=== PATIENT | female | born 1980 | race African-American/Black ===

== ENCOUNTER 2019-12-18 23:29 | Emergency (ER) | payer OTHER, MEDICARE ==
[~2019-12-18] VITALS: Ht 170.2 cm; Wt 72.0 kg
[2019-12-19] MEDS ORDERED: ACETAMINOPHEN 325MG TABLET PO ONE (01:15)
[2019-12-19] MEDS ORDERED: BACITRACIN ZINC OINT UDPKT TOP ONE (01:15)
[2019-12-19] MEDS ORDERED: LIDOCAINE HCL/PF 1% 10 MG/ML 5ML VIAL IJ ONE (01:15)
[2019-12-19 02:01] VITALS: BP 107/65
== END 2019-12-19 02:02 | disposition home or self-care (01) ==
LOC: ER 23:29
DX: S61.012A Laceration without foreign body of left thumb without damage to nail, initial encounter (principal); W26.8XXA Contact with other sharp object(s), not elsewhere classified, initial encounter; Y93.89 Activity, other specified; Y92.89 Other specified places as the place of occurrence of the external cause; Y99.8 Other external cause status; Z98.890 Other specified postprocedural states; Z99.2 Dependence on renal dialysis; Z88.1 Allergy status to other antibiotic agents; Z88.8 Allergy status to other drugs, medicaments and biological substances
CPT/HCPCS: 12001; 99283; J3490

== ENCOUNTER 2019-12-23 20:35 | Emergency (ER) | payer MEDICARE, OTHER ==
[~2019-12-23] VITALS: Ht 170.2 cm; Wt 70.0 kg
[2019-12-23] MEDS ORDERED: TETANUS, DIPHTHERIA, PERTUSSIS VAC/PF 0.5ML (>7YR OLD) IM ONE (22:30)
[2019-12-23 23:17] VITALS: BP 110/80
== END 2019-12-23 23:17 | disposition home or self-care (01) ==
LOC: ER 20:35
DX: Z23 Encounter for immunization (principal); Z48.00 Encounter for change or removal of nonsurgical wound dressing; Z88.1 Allergy status to other antibiotic agents; Z88.3 Allergy status to other anti-infective agents; Z88.8 Allergy status to other drugs, medicaments and biological substances; Z99.2 Dependence on renal dialysis; Z98.890 Other specified postprocedural states
CPT/HCPCS: 90471; 90715; 99283